=== PATIENT | male | born 1945 | race Caucasian/White ===

== ENCOUNTER 2017-06-30 07:59 | Outpatient (CLI) | payer MEDICARE, BC ==
--- NOTE | 2017-06-30 17:50 | MRI ---
MRI CERVICAL SPINE WITH AND WITHOUT CONTRAST: Date: 06/30/17 HISTORY: 72-year-old male with cervicalgia and cervical radiculopathy. COMPARISON: None. TECHNIQUE: Multisequence MRI of cervical spine performed in axial and sagittal planes, pre and post IV injectio n of 20 mL of MultiHance Gadolinium based contrast agent. FINDINGS: There is no abnormal enhancement in the intramedullary, extramedullary-intradural, extradural, intra osseous, or perivertebral, spaces. No Chiari malformation. Cervical spinal cord is normal in size an d signal. Vertebral body heights are maintained. No high grade disc space narrowing at any level. C1-2: Essentially normal. C2-3: Mild right degenerative facet changes. No central or neural foraminal stenosis. Disc space maintaine d. C3-4: Thickened ligamentum flavum abuts and minimally indents the dorsal aspect of the spinal cord. Broad based disc-osteophytic bar complex indents the ventral aspect of the spinal cord, causing severe jackson tral spinal canal stenosis.. This is larger on the right side of the spinal canal than the left. Thi s is contiguous with large right uncovertebral joint osteophytes, which, together with mild right de generative facet hypertrophy and slight degenerative retrolisthesis of C3 on C4 (with mild disc spac e narrowing) results in severe right neural foraminal stenosis. Moderate to severe left neural christine inal stenosis. C4-5: Normal right facet joint. The left facet joint is indistinct and difficult to visualize clearly on t he sagittal images. There may be bony hypertrophy, and possible ankylosis of the left facet joint. M oderate central spinal canal stenosis entirely on a congenital basis due to developmentally short pe dicles. Small bilateral uncovertebral joint osteophytes on the right and moderate sized uncovertebra l joint osteophytes on the left. No right-sided neural foraminal stenosis. Moderate to severe left n eural foraminal stenosis. C5-6: Thickened ligamentum flavum minimally indents the dorsal aspect of the spinal cord. Broad based disc -osteophytic bar complex indents the ventral surface of the spinal cord. Overall, severe central spi nal canal stenosis. Bilateral uncovertebral joint osteophytes, left larger than right, result in mod erate to severe right neural foraminal stenosis, and severe left neural foraminal stenosis. C6-7: Broad based disc-osteophytic bar complex encroaches upon the anterior aspect of the spinal canal, al most contacting the spinal cord. Superimposed on a developmentally small caliber spinal canal, and m ild ligamentum flavum thickening, this results in moderate central spinal canal stenosis. Normal jessi ateral facet joints. Large left uncovertebral joint osteophytes. Mild to moderate right neural christine inal stenosis, and severe left neural foraminal stenosis. C7-T1: Normal right facet joint. Mild left degenerative facet changes. No central or neural foraminal steno sis. IMPRESSION: 1. Severe central spinal canal stenosis at C3-4 and C5-6. 2. High grade neural foraminal stenosis at multiple levels bilaterally. POS: JI
== END 2017-06-30 08:00 | disposition home or self-care (01) ==
LOC: MRI 07:59
PROVIDERS: ATTEND Internal Medicine
DX: M54.12 Radiculopathy, cervical region (principal); R52 Pain, unspecified; M48.02 Spinal stenosis, cervical region
CPT/HCPCS: 72156

== ENCOUNTER 2017-08-15 07:47 | Outpatient (CLI) | payer MEDICARE, BC ==
--- NOTE | 2017-08-15 10:55 | MRI ---
LUMBAR MRI WITHOUT IV CONTRAST: History: 63-year-old male with lumbar radiculopathy and balance problems and back pain. Technique: Multiplanar, multisequence MRI examination of the lumbar spine is performed. FINDINGS: There is a focal lower abdominal aortic aneurysm measuring approximately 4.4 x 4.9 cm. Several small right renal T2 hyperintensity, T1 hypointense foci, statistically small renal cysts. There is some minimal incidental fluid within the central lower spinal cord. T12-L1 and L1-2 discs are unremarkable. There is generalized disc desiccation changes and ligament a nd facet hypertrophic changes. At L2-3 there is mild disc bulging without central canal or foraminal stenosis. L3-4 disc level is unremarkable. At L4-5 there is diffuse disc bulge with ligament and facet hypertrophic changes with mild bilateral foraminal stenosis. L5-S1 disc is unremarkable. IMPRESSION: Generalized disc desiccation changes with ligament and facet hypertrophic changes without significan t focal canal, lateral recess, or foraminal stenosis. Large lower abdominal aneurysm. Small right re nal T2 hyperintense foci, statistically small cysts. Discussed with WOJCIECH Jane at 11:00 AM POS: JI
--- NOTE | 2017-08-15 11:51 | MRI ---
MRI THORACIC SPINE WITHOUT CONTRAST: HISTORY: Balance problems. Thoracic radiculopathy. Left arm and shoulder pain. FINDINGS: Vertebral body heights and marrow signal are normal. No focal disk herniation, cord compression, or impingement, or significant central or neural foraminal stenosis is seen. The thoracic spinal cord demonstrates normal course, caliber, and signal. Fluid in the central canal is visualized but is w ithin normal limits. There are degenerative changes in the costovertebral joints. Anterior osteoph ytes are present, arising from the vertebral bodies. IMPRESSION: Mild thoracic spondylosis without evidence of disk herniation, cord compression, central or neural f oraminal stenosis. POS: NIKIA
== END 2017-08-15 07:48 | disposition home or self-care (01) ==
LOC: MRI 07:47
PROVIDERS: ATTEND Physician Assistant Surgical
DX: M47.24 Other spondylosis with radiculopathy, thoracic region (principal); R26.89 Other abnormalities of gait and mobility; I71.4 Abdominal aortic aneurysm, without rupture; N28.1 Cyst of kidney, acquired
CPT/HCPCS: 72146; 72148

== ENCOUNTER 2017-08-22 12:11 | Outpatient (CLI) | payer MEDICARE, BC ==
[2017-08-22] MEDS ORDERED: Iopamidol 370 76% 100 ML VIAL ONE (13:56)
--- NOTE | 2017-08-22 16:00 | CT ---
CONTRAST ENHANCED CTA ABDOMEN AND PELVIS: HISTORY: Abdominal aortic aneurysm, I71.4. FINDINGS: Pre- and postcontrast-enhanced CT images abdomen and pelvis obtained. Two-D and 3D reconstructed marilyn ges performed on an independent 3D work station. The lung bases are unremarkable. No evidence of free intraperitoneal air is seen. The liver is unremarkable. The spleen contains small granuloma; otherwise, is unremarkable. The gal lbladder is unremarkable. The pancreas is unremarkable. Adrenal glands and kidneys are unremarkable , except for a small cortical cyst in the mid pole of the right kidney. No evidence of periaortic lymphadenopathy is seen. The SMA, celiac, renal arteries, and MARILYN are patent. There is an infrarenal abdominal aortic aneurysm originating approximately 4.3 cm below the takeoff o f the renal arteries. The aneurysm involves the lowest aspect of the infrarenal abdominal aorta. Ma ximum diameter measures approximately 5.2 x 4.7 cm in the axial plane. Superior inferior length don ures 4.6 cm. The aneurysm with a crescentic posterior area of clot is seen involving the lateral and posterior aspects of the abdominal aorta. The aneurysm does not extend into the right and left comm on iliac arteries. Numerous sigmoid and descending colonic diverticula are present. IMPRESSION: 1. Colonic diverticulosis. 2. Infrarenal abdominal aortic aneurysm without evidence of acute hemorrhage. POS: JI
== END 2017-08-22 12:12 | disposition home or self-care (01) ==
LOC: CT 12:11
PROVIDERS: ATTEND Thoracic Surgery (Cardiothoracic Vascular Surgery)
DX: I71.4 Abdominal aortic aneurysm, without rupture (principal); K57.30 Diverticulosis of large intestine without perforation or abscess without bleeding
CPT/HCPCS: 74174

== ENCOUNTER 2017-10-09 13:52 | Outpatient (CLI) | payer MEDICARE, BC ==
[2017-10-09 15:17] LABS: Hemoglobin 15.2 g/dL (14.0-18.0); Mean Corpuscular HGB CONC 33.8 g/dL (32.0-36.0); Mean Corpuscular Hemoglobin 32.2 pg (27.0-31.0); Mean Corpuscular Volume 95.1 fl (80.0-94.0); Mean Platelet Volume 6.7 fL (7.4-10.4); Platelet Count 181 thou/uL (130-400); RBC Distribution Width 12.7 % (11.5-14.5); Red Blood Cell (RBC) Count 4.73 mill/uL (4.70-6.10)
[2017-10-09 15:36] LABS: INR-International Normal Ratio 1.1; PTT 28.8 SEC (22.9-36.1); Prothrombin Time 14.2 SEC (12.0-14.7)
[2017-10-09 15:46] LABS: ALT (SGPT) 26 U/L (8-55); AST (SGOT) 18 U/L (5-34); Albumin 4.3 g/dL (3.4-4.8); Alkaline Phosphatase 70 U/L (40-150); Anion Gap 15 mmol/L (10-20); BUN (Urea Nitrogen) 17 mg/dL (8.4-25.7); Bilirubin, Total 0.5 mg/dL (0.2-1.2); Calc. Creatinine Clearance 0 mL/min (70-130); Calcium 10.4 mg/dL (7.8-10.44); Carbon Dioxide 25 mmol/L (23-31); Chloride 104 mmol/L (98-107); Estimated GFR-MDRD 50; Globulin 3.5 g/dL (2.4-3.5); Glucose 98 mg/dL (80-115); Potassium 4.9 mmol/L (3.5-5.1); Protein, Total 7.8 g/dL (5.8-8.1); Sodium 139 mmol/L (136-145)
--- NOTE | 2017-11-03 16:31 | EKG ---
Test Reason : Blood Pressure : / mmHG Vent. Rate : 062 BPM Atrial Rate : 062 BPM P-R Int : 150 ms QRS Dur : 088 ms QT Int : 390 ms P-R-T Axes : 032 066 068 degrees QTc Int : 395 ms Normal sinus rhythm Normal ECG When compared with ECG of 27-OCT-2015 12:12, No significant change was found Confirmed by DR. Simba CANTOR ([id number]) on 11/03/2017 4:31:13 PM Referred By: JOHN PAUL Confirmed By:DR. Simba CANTOR
== END 2017-10-09 13:53 | disposition home or self-care (01) ==
LOC: LABBT 13:52
PROVIDERS: ATTEND Internal Medicine Cardiovascular Disease
DX: Z01.818 Encounter for other preprocedural examination (principal); R94.30 Abnormal result of cardiovascular function study, unspecified
CPT/HCPCS: 80053; 85027; 85610; 85730; 93005; 93010

== ENCOUNTER 2017-10-12 05:38 | Day surgery (SDC) | payer MEDICARE, BC ==
[2017-10-09 14:27] VITALS: BMI 31.1
[2017-10-12 07:18] LABS: Cardiac Risk 2.7 (Less than 4.5)
[2017-10-12] MEDS ORDERED: Fentanyl 100 MCG/2 ML VIAL ONE (08:23)
[2017-10-12] MEDS ORDERED: Midazolam HCl 2 mg/2 ml Vial ONE (08:23)
[2017-10-12] MEDS ORDERED: Heparin 10,000 UNITS/1 ML VIAL ONE (08:46)
[2017-10-12] MEDS ORDERED: Atropine Sulfate 1 mg/10 ml Syringe ONE (08:50)
--- NOTE | 2017-10-12 11:44 | OP ---
PREOPERATIVE DIAGNOSIS: Abdominal aortic aneurysm with large inferior mesenteric artery. POSTOPERATIVE DIAGNOSIS: Abdominal aortic aneurysm with large inferior mesenteric artery. PROCEDURE: Embolization of inferior mesenteric artery. CONTRAST: 13 mL. FLUOROSCOPY: 21.8 minutes, but this also included fluoroscopy time for his cardiac catheterization a nd stenting of his right coronary artery. PROCEDURE IN DETAIL: After completion of the right coronary artery stenting, accessed the previously placed right femoral artery sheath. A pigtail catheter was used to do AP and lateral injections of the abdominal aorta. The inferior mesenteric artery was then cannulated with a Yousuf catheter and Gli dewire. After seating the Yousuf catheter, a 21 microcatheter was placed into the inferior mesenteric artery. An 8 x 2 cm detachable coil was then placed and then on top of that, a 6 x 2 detachable coil . Following this, it was felt that there was adequate occlusion of the main trunk of the inferior me senteric artery and is coil set just proximal to first bifurcation point. Following this, catheter w as removed and the sheath is going to be handled by Dr. Qureshi.
== END 2017-10-12 15:08 | disposition home or self-care (01) ==
LOC: CCL 05:38
PROVIDERS: ATTEND Internal Medicine Cardiovascular Disease
DX: I25.10 Atherosclerotic heart disease of native coronary artery without angina pectoris (principal); I71.4 Abdominal aortic aneurysm, without rupture; I25.2 Old myocardial infarction; E11.9 Type 2 diabetes mellitus without complications; Z90.49 Acquired absence of other specified parts of digestive tract; Z79.51 Long term (current) use of inhaled steroids; Z79.82 Long term (current) use of aspirin; Z79.1 Long term (current) use of non-steroidal anti-inflammatories (NSAID); Z79.899 Other long term (current) drug therapy; Z95.1 Presence of aortocoronary bypass graft; Z96.653 Presence of artificial knee joint, bilateral; Z98.890 Other specified postprocedural states
CPT/HCPCS: 37242; 80061; 85347 ×2; 93005; 93459; 93798; C1769 ×5; C1874; C1887; C9600; 92928; 99152; 99153; J0461; J1644; J2250; J3010

== ENCOUNTER 2017-10-20 11:26 | Observation (INO) | payer MEDICARE, BC ==
[2017-10-20 12:01] LABS: #Basophils 0.1 thou/uL (0.0-0.2); #Eosinphils 0.1 thou/uL (0.0-0.7); #Lymphocytes 2.2 thou/uL (1.20-3.40); #Monocytes 0.8 thou/uL (0.11-0.59); %Basophils 0.6 % (0.0-1.0); %Eosinophils 1.4 % (0.0-10.0); %Lymphocytes 21.9 % (21.0-51.0); %Monocytes 7.5 % (0.0-10.0); %Neutrophils 68.7 % (42.0-75.0); Hemoglobin 15.7 g/dL (14.0-18.0); Mean Corpuscular HGB CONC 33.9 g/dL (32.0-36.0); Mean Corpuscular Hemoglobin 31.9 pg (27.0-31.0); Mean Corpuscular Volume 94.2 fl (80.0-94.0); Mean Platelet Volume 6.7 fL (7.4-10.4); Platelet Count 220 thou/uL (130-400); RBC Distribution Width 13.1 % (11.5-14.5); Red Blood Cell (RBC) Count 4.93 mill/uL (4.70-6.10); White Blood Cell (WBC) Count 10.1 thou/uL (4.8-10.8)
--- NOTE | 2017-10-20 12:11 | RAD ---
CHEST 1 VIEW: Date: 10/20/17 HISTORY: Dyspnea. Chest pain. COMPARISON: 01/21/09. FINDINGS: Cardiac silhouette is magnified and upper limits of normal in size. Pulmonary vasculature is unremark able. Lungs are hyperinflated. Mediastinum is midline with postoperative changes apparent. Azygos fis sure at the right apex and scarring at the right suprahilar level are stable. IMPRESSION: COPD. Chronic-type findings. No active cardiopulmonary abnormalities are demonstrated. POS: JI
[2017-10-20 12:24] LABS: ALT (SGPT) 21 U/L (8-55); AST (SGOT) 16 U/L (5-34); Albumin 4.2 g/dL (3.4-4.8); Alkaline Phosphatase 63 U/L (40-150); Anion Gap 14 mmol/L (10-20); BUN (Urea Nitrogen) 17 mg/dL (8.4-25.7); Bilirubin, Total 1.1 mg/dL (0.2-1.2); CK (CPK) 65 U/L (30-200); Calc. Creatinine Clearance 0 mL/min (70-130); Calcium 9.9 mg/dL (7.8-10.44); Carbon Dioxide 21 mmol/L (23-31); Chloride 105 mmol/L (98-107); Estimated GFR-MDRD 53; Globulin 3.7 g/dL (2.4-3.5); Glucose 97 mg/dL (80-115); Protein, Total 7.9 g/dL (5.8-8.1); Sodium 136 mmol/L (136-145)
[2017-10-20 12:28] LABS: CKMB 1.6 ng/mL (0-6.6); Troponin I Less than 0.010 ng/mL (< 0.028)
--- NOTE | 2017-10-20 13:18 | CT ---
CT ANGIOGRAM ABDOMEN AND PELVIS WITH IV CONTRAST AND 3D RECONSTRUCTIONS: 10/20/2017 HISTORY: Abdominal aortic aneurysm. COMPARISON: 08/22/2017 FINDINGS: Again noted is an infrarenal abdominal aortic aneurysm, with the aneurysm extending to the aortic bif urcation. The aneurysm again measures similar in size to the prior study, measuring 5.1 cm x 4.7 cm. Craniocaudal extent is approximately 5.1 cm. Eccentric thrombus is again seen at the posterior asp ect of this aneurysm. There is mild atherosclerotic calcification seen in the abdominal aorta and involving the iliac arter ies; however, the iliac arteries are patent bilaterally. The bilateral common femoral as well as the proximal visualized superficial and profunda femoral arteries are patent. There is narrowing involving the proximal celiac artery, likely related to an arcuate ligament. Prom inent calcifications are seen at the origin of the superior mesenteric artery, but the superior mesen teric artery is patent. There are two right renal arteries with mild to moderate narrowing involving the most proximal right renal artery due to atherosclerotic plaque. There is a single patent left r enal artery identified. The inferior mesenteric artery is patent. There is bibasilar atelectasis. There are stable subcentimeter hypodense, cystic lesions involving the right kidney, with much smalle r hypodense lesions involving the left kidney, which are too small to further characterize but statis tically likely represent renal cysts. The liver and pancreas, as well as the bilateral adrenal glands, demonstrate a normal CT appearance. Calcified granulomata are seen in the spleen. The urinary bladder is partially distended and grossl y normal in appearance. There is colonic diverticulosis again present. Post surgical changes at the cecal apex are probably related to a prior appendectomy. There has been no other interval change compared to the prior exam. There is mild stranding seen in the right inguinal region, of uncertain etiology. There is a small l ow density area adjacent to the most proximal right superficial femoral artery. Findings may be rela pilar to recent Cardiac catheterization. There is no evidence of a pseudoaneurysm in this region. IMPRESSION: 1. Overall stable infrarenal abdominal aortic aneurysm with eccentric thrombus present. 2. Narrowing involving the proximal celiac artery, probably related to an arcuate ligament. 3. Mild to moderate narrowing involving the more superiorly located right renal artery. 4. Findings likely related to recent Cardiac catheterization. Clinical correlation is recommended. There is no evidence of a pseudoaneurysm in this region. POS: NIKIA
[2017-10-20 15:58] VITALS: BMI 31.3
[2017-10-20] MEDS ORDERED: ISOVUE-370 76%-LOCM 1 ML ONE (16:42)
[2017-10-20] MEDS ORDERED: Clopidogrel Bisulfate 75 MG TAB PO SCH (16:45)
[2017-10-20] MEDS ORDERED: Ondansetron ODT 4 MG TAB PO PRN (17:08)
[2017-10-20] MEDS ORDERED: hydrALAZINE 20 MG/ML VIAL SLOW IVP PRN (17:08)
[2017-10-20] MEDS ORDERED: Acetaminophen 500 MG TAB PO PRN (17:08)
[2017-10-20] MEDS ORDERED: cloNIDine 0.1 MG TAB PO PRN (17:08)
[2017-10-20] MEDS ORDERED: Ondansetron HCl/PF 4 MG/2 ML Vial IVP PRN (17:08)
--- NOTE | 2017-10-20 19:53 | CON ---
DATE OF CONSULTATION: 10/20/2017 REASON FOR CONSULTATION: Shortness of breath. PRIMARY MANAGER MARKETING: Guido Qureshi M.D. HISTORY OF PRESENT ILLNESS: Mr. Velázquez is a very pleasant 72-year-old white gentleman, who comes to the hospital for increased shortness of breath where he had a heart catheterization with graft an giography done just a week ago. At that time, he was found to have a significant RCA disease and thi s was stented successfully. He was started on Brilinta at that time. It was noted that ever since s tarting the Brilinta, he has continued to feel increased shortness of breath actually a little bit wo rse than normal. He has also noticed a little bit of congestion in his upper airway and he thinks he may be developing a cold. Because his shortness of breath was getting worse, he decided to come in for evaluation. Currently, he tells me he has felt a little more short of breath on lying flat on hi s back, but he has not noticed that his abdominal girth has changed significantly. His legs are not any more swollen they would normally are. PAST MEDICAL HISTORY: 1. Coronary artery disease status post coronary artery bypass grafting as well as stenting as well. 2. Hyperlipidemia. 3. GERD. 4. Sleep apnea. PAST SURGICAL HISTORY: 1. CABG x2 in 2008. 2. Stent placed to the RCA recently. 3. Coiling of the inferior mesenteric artery at the same time of the heart catheterization and stent ing just last week. 4. Right total knee replacement. 5. Hemicolectomy in 2001 due to large colon polyp. ALLERGIES: Intolerance to STATINS, GEMFIBROZIL, and ZETIA. SOCIAL HISTORY: No alcohol, tobacco, or drugs. REVIEW OF SYSTEMS: Twelve point review of systems was done and is all negative unless stated in the history of present illness. OUTPATIENT MEDICATIONS: Include: 1. Rapaflo. 2. CoQ10. 3. Brilinta 90 mg b.i.d. 4. Protonix 40 mg b.i.d. 5. [place]umont 3. 6. Flonase nasal spray. 7. Zyrtec. 8. Carvedilol 3.125 mg p.o. b.i.d. 9. Azelastine nasal spray. 10. Aspirin 81 a day. PHYSICAL EXAMINATION: VITAL SIGNS: Temperature 97.5, pulse 65, respiration rate 16, satting 96% on 2 liters, blood pressur e 128/93. GENERAL: Awake, alert, oriented x3, in no distress. HEENT: Normocephalic, atraumatic. NECK: Supple. LUNGS: Clear. CARDIOVASCULAR: S1, S2. No S3 or S4. No murmurs or rubs. ABDOMEN: Prominent, but soft, nontender, and nondistended. Positive bowel sounds. EXTREMITIES: No edema. SKIN: Warm and dry. LABORATORY WORK: Reviewed. Sodium 136, potassium 4.0, carbon dioxide of 21, anion gap of 14, BUN of 70, creatinine 1.34 which is close to his baseline before his procedure, last week it was 1.4 actual ly. Troponin is undetectable. BNP was 31, albumin 4.2. Chest x-ray shows findings consistent with COPD, but no acute findings. CT angiography of the abdomen and pelvis to evaluate for abdominal aneurysm showed stable aneurysm wi th laminar thrombus which is unchanged. Both superior and inferior mesenteric arteries are patent ac tually, but the coils are seen on the inferior mesenteric artery. I do not know that I see much flow through them. The vessels do feel most likely from collateral flow from the superior mesenteric ar fransisca. ASSESSMENT AND PLAN: 1. Shortness of breath: Most likely related to Brilinta. This is a known side effect of this medic ation. He has noticed worsening shortness of breath since starting this medication or since placing the stent. I doubt that the stent is an issue as his troponins are completely negative. He is not c omplaining of anginal type symptoms. We will switch his Brilinta to Plavix and hopefully he will fee l better in the morning. I initially thought I will have to diurese him, but with a normal chest x-r ay and normal BNP, physical exam is a little bit hard given his large abdominal girth, but he seems t o be uvolemic. I will hold off on any diuresis for now. 2. Hopefully, he will feel better in the morning and he will be able to be discharged home without i ssues. Thank you for letting us to participate in the care of your patient. We will follow.
[2017-10-20] MEDS: Fluticasone Propionate Nasal Spray 16 gm Bottle NASAL SCH (20:14)
[2017-10-20] MEDS: Fish Oil 1,000 MG CAP PO SCH (20:15)
[2017-10-20] MEDS: Carvedilol 3.125 MG TAB PO SCH (20:15)
[2017-10-20] MEDS: Azelastine 137 MCG/Spray 30 ML NS SCH (20:15)
[2017-10-20] MEDS ORDERED: Loratadine 10 MG TAB PO SCH (21:00)
--- NOTE | 2017-10-20 22:19 | HP ---
DATE OF ADMISSION: 10/20/2017 PRIMARY CARE PROVIDER: Toan García M.D. PRIMARY SECURITY OPERATIONS CENTER ANALYST: Guido Qureshi MD CHIEF COMPLAINT: Shortness of breath and high blood pressure. HISTORY OF PRESENT ILLNESS: This is a 72-year-old male who presents to [facility] complaining of increased shortness of breath with associated high blood pressure, taki ng his blood pressure at home. The patient noted his blood pressure was elevated per his report with no specific change in his activity level. The patient became concerned with associated shortness of breath and some palpitations. The patient's history is significant for recent right coronary arteri es drug-eluting stent placement on 10/12/2017. The patient with a known history of coronary artery d isease status post coronary artery bypass grafting with patent grafts per review of the cardiac chuckie terization report. The patient underwent successful PCI Synergy drug-eluting stent to the right tarun nary artery and placed on Brilinta and aspirin. The patient states he has been compliant with his me dication regimen and denied any specific fever, chills, blood in his stool, hematemesis or coughing. The patient did notice fluctuating blood pressure, but exact numbers are not given. The patient sta abimael he was out in the community shopping at a local department store, but denied any strenuous activi ties. The patient denies any specific increased swelling to his lower extremities or swelling at the groin site where previous catheterization was performed. The patient denied any prominent chest milana n, jaw or left arm discomfort. The patient did not take any home remedies and states he typically re sted to relieve his symptoms. In the emergency room, the patient underwent general evaluation includ ing chest imaging showing no acute infiltrate. The patient underwent CT angiogram of the abdomen and pelvis after recent cardiac catheterization as well as an inferior mesenteric artery coil procedure done at the time of the cardiac catheterization on 10/12/2017. Findings showed no specific acute iss ue and screening troponins were negative on metabolic survey. EKG was performed showing initial ques tion of ST depression in V3 through V6 and leads II, III, and F. The patient was transferred to the observation unit for further evaluation. PAST MEDICAL HISTORY: 1. Coronary artery disease status post right coronary artery drug-eluting stent placement, 8. 2. Status post embolization with coil to the inferior mesenteric artery, 10/12/2017. 3. Hypertension. 4. Degenerative joint disease. 5. Coronary artery disease. 6. Hyperlipidemia. 7. Abdominal aortic aneurysm. PAST SURGICAL HISTORY: 1. Status post coronary artery bypass grafting. 2. Status post cardiac catheterization with drug-eluting stent in the right coronary artery. 3. Status post bilateral total knee arthroplasty. 4. Status post colon resection. 5. Status post umbilical hernia repair. CURRENT MEDICATIONS: 1. Aspirin enteric coated 81 mg 1 tab p.o. daily. 2. Carvedilol 3.125 mg p.o. b.i.d. 3. Zyrtec 10 mg 1 tab p.o. at bedtime. 4. Azelastine 137 mcg 1 spray in each naris b.i.d. 5. Repatha SureClick 140 mg subcutaneously every 2 weeks. 6. Flonase nasal spray 1 spray in each naris b.i.d. 7. Shoshone 3 fatty acids 1200 mg p.o. b.i.d. 8. Protonix 40 mg 1 tab p.o. b.i.d. 9. Brilinta 90 mg p.o. b.i.d. 10. Coenzyme Q10 of 200 mg p.o. daily. ALLERGIES: No known drug allergies. FAMILY HISTORY: Positive for hypertension. SOCIAL HISTORY: The patient is , residing in [place], [place]. No current alcohol, tobacco or il licit drug use. REVIEW OF SYSTEMS: The following complete review of systems was negative, unless otherwise mentioned in the HPI or below: Constitutional: Weight loss or gain, ability to conduct usual activities. Skin: Rash, itching. Ey es: Double vision, pain. ENT/Mouth: Nose bleeding, neck stiffness, pain, tenderness. Cardiovascul ar: Palpitations, dyspnea on exertion, orthopnea. Respiratory: Shortness of breath, wheezing, coug h, hemoptysis, fever or night sweats. Gastrointestinal: Poor appetite, abdominal pain, heartburn, n ausea, vomiting, constipation, or diarrhea. Genitourinary: Urgency, frequency, dysuria, nocturia. Musculoskeletal: Pain, swelling. Neurologic/Psychiatric: Anxiety, depression. Allergy/Immunologic : Skin rash, bleeding tendency. PHYSICAL EXAMINATION: VITAL SIGNS: On admission, blood pressure 148/97, pulse 90, respiratory rate 22, temperature 98.3 de grees Fahrenheit, O2 saturation 96% on room air. GENERAL APPEARANCE: This is a 72-year-old female, alert and oriented x3, pleasant, convers ant, in no acute distress. HEENT: Pupils are equal, round, and reactive to light and accommodation. Extraocular muscles are in tact. No scleral icterus, no conjunctival injection. Nares patent. OP is clear. Teeth in good rep air. NECK: Supple, no cervical adenopathy, no thyromegaly, no carotid bruits, no JVD appreciated. Cervic al spine with full active and passive range of motion. No meningeal signs appreciated. CHEST: Lungs are clear to auscultation bilaterally. CARDIOVASCULAR: S1, S2 with distant heart sounds. ABDOMEN: Rounded, soft without tenderness to palpation. Bowel sounds are positive in all four quadr ants. There is no hepatosplenomegaly, no abdominal bruits, no rebound or guarding appreciated. EXTREMITIES: Warm and dry with fair turgor. No clubbing, cyanosis or asymmetric edema appreciated. Ecchymosis in the right groin region noted consistent with prior femoral access for cardiac catheter ization. No large hematoma palpated. Pulses are palpable distally at the dorsalis pedis, posterior tibial, and popliteal arteries bilaterally. Capillary refill less than 2 seconds. NEUROLOGIC: Cranial nerves II-XII are grossly intact. No focal or lateralizing signs appreciated. PERTINENT LABORATORY AND X-RAY FINDINGS: Sodium 136, potassium 4.0, chloride 105, CO2 of 21, BUN 17, creatinine 1.34 with estimated GFR 53, glucose 97, calcium 9.9. LFTs within normal limits. Troponi n I negative x1. Albumin 4.2. CBC showed a white blood cell count of 10.1, hemoglobin 16, hematocri t 46, MCV 94, platelet count 220 with normal differential. Portable chest x-ray dated 10/20/2017 showed no acute cardiopulmonary process. CT angiogram of the abdomen and pelvis dated 10/20/2017 showed, 1. Stable infrarenal abdominal aortic aneurysm with eccentric thrombus. Narrowing involving the pro ximal celiac artery secondarily to arcuate ligament. 2. Mild to moderate narrowing of superiorly located right renal artery. EKG dated 10/20/2017 by my interpretation shows sinus mechanism with heart rates in the 80s-90s. Nor mal R-wave progression noted in the precordial leads. Normal axis. Nonspecific ST-T wave changes in V3 through V6 and leads II, III, and F. Repeat EKG dated 10/20/2017 at 13:10 p.m. showed sinus mech anism, heart rates in the 60s. Normal R-wave progression noted in the precordial leads. Normal axis . Resolution of mild ST-T wave changes noted. ASSESSMENT AND PLAN: 1. Dyspnea with question of anginal equivalent. The patient will be observed on the telemetry unit. We will continue symptomatic and supportive management. Consult Cardiology Service for evaluation. No current evidence to suggest acute coronary syndrome. May consider low dose nitrates. 2. Hypertension. Questionable lability. We will continue serial blood pressure monitoring. Resume home antihypertensive regimen and monitor clinical response. 3. Coronary artery disease status post right coronary artery drug-eluting stent placement, 8. We will continue home regimen of aspirin 81 mg p.o. daily. Add Plavix 75 mg p.o. daily. Hold Br ilinta. Continue carvedilol 3.125 mg p.o. b.i.d. 4. Hyperlipidemia. Continue omega 3 fatty acids 1200 mg p.o. b.i.d., Repatha SureClick every 2 week s. 5. Question of chronic kidney disease stage II-III. Avoid nephrotoxic agents and contrast media. R epeat creatinine in the a.m. 6. Status post inferior mesenteric artery embolization. Stable currently. Continue supportive nighat gement. Continue aspirin and Plavix. 7. Prophylaxis. Sequential compression devices while in bed. Protonix 40 mg p.o. b.i.d. 8. Code status is FULL. Surrogate medical decision maker is patient's spouse.
[2017-10-21 05:35] LABS: Band 7 % (5-11); Eosinophils 1 % (0-10); Hemoglobin 14.4 g/dL (14.0-18.0); Lymphocytes 29 % (21-51); MDiff Complete? YES; Mean Corpuscular HGB CONC 32.4 g/dL (32.0-36.0); Mean Corpuscular Hemoglobin 30.6 pg (27.0-31.0); Mean Corpuscular Volume 94.4 fl (80.0-94.0); Mean Platelet Volume 7.1 fL (7.4-10.4); Monocytes 5 % (0-10); Neutrophil 58 % (42-75); Platelet Count 196 thou/uL (130-400); RBC Distribution Width 13.2 % (11.5-14.5); Red Blood Cell (RBC) Count 4.69 mill/uL (4.70-6.10)
[2017-10-21 05:48] LABS: Anion Gap 12 mmol/L (10-20); BUN (Urea Nitrogen) 18 mg/dL (8.4-25.7); Calc. Creatinine Clearance 81 mL/min (70-130); Calcium 9.6 mg/dL (7.8-10.44); Carbon Dioxide 23 mmol/L (23-31); Chloride 104 mmol/L (98-107); Estimated GFR-MDRD 57; Glucose 92 mg/dL (80-115); Potassium 3.8 mmol/L (3.5-5.1); Sodium 135 mmol/L (136-145)
[2017-10-21] MEDS ORDERED: Clopidogrel Bisulfate 75 MG TAB PO SCH (09:00)
[2017-10-21] MEDS ORDERED: Aspirin 81 mg Enteric Coated Tablet PO SCH (09:00)
[2017-10-21] MEDS ORDERED: Ubidecarenone 50 MG CAP PO SCH (09:00)
[2017-10-21] MEDS: Azelastine 137 MCG/Spray 30 ML NS SCH (09:02)
[2017-10-21] MEDS: Fluticasone Propionate Nasal Spray 16 gm Bottle NASAL SCH (09:03)
[2017-10-21] MEDS: Carvedilol 3.125 MG TAB PO SCH (09:04)
[2017-10-21] MEDS: Fish Oil 1,000 MG CAP PO SCH (09:05)
[2017-10-21 11:25] VITALS: BP 140/84; TEMP 97.6
--- NOTE | 2017-10-21 12:43 | PDOC.CTH ---
Cardiology Progress Note - Subjective He is doing better today. SOB is already starting to improve. - Objective Vital Signs Temp Pulse Resp BP Pulse Ox 10/21/17 10:50 97.6 F 64 20 140/84 93 L 10/21/17 07:48 97.9 F 79 20 130/82 94 L 10/21/17 07:20 98.4 F 71 16 10/21/17 04:26 98.4 F 71 16 120/57 L 94 L Weight 232 lb 8 oz 10/20/17 10/21/17 10/22/17 06:59 06:59 06:59 Intake Total 450 300 Output Total 1900 450 Balance -1450 -150 - Physical Examination General/Neuro: alert & oriented x3, NAD Neck: no JVD present Lungs: CTA, unlabored respirations Heart: RRR Abdomen: NT/ND Extremities: + edema B (trace) - Telemetry Telemetry Rhythm: NSR - Labs Result Diagrams: 10/21/17 04:29 10/21/17 04:29 Troponin/CKMB CK-MB (CK-2) 1.6 ng/mL (0-6.6) 10/20/17 11:45 Troponin I Less than 0.010 ng/mL (< 0.028) 10/20/17 11:45 - Assessment/Plan 1. SOB. 2. Recent stent to RCA 3. Recent coiling of MARILYN 4. CAD, stable PLAN: - Continue Plavix, SOB may have been related to Brilinta. - Continue other meds. - May discharge home at any time from cardiac perspective. - Follow up in 2 weeks. - Will sign off. Please call with any questions.
== END 2017-10-21 13:04 | disposition home or self-care (01) ==
LOC: ERS 11:26 → 2SW 14:00
PROVIDERS: ADMIT Family Medicine; ATTEND Family Medicine
DX: R06.02 Shortness of breath (principal); I10 Essential (primary) hypertension; I25.10 Atherosclerotic heart disease of native coronary artery without angina pectoris; Z95.1 Presence of aortocoronary bypass graft; M19.90 Unspecified osteoarthritis, unspecified site; I71.4 Abdominal aortic aneurysm, without rupture; E78.5 Hyperlipidemia, unspecified; Z79.82 Long term (current) use of aspirin; Z79.02 Long term (current) use of antithrombotics/antiplatelets; Z79.899 Other long term (current) drug therapy; Z90.49 Acquired absence of other specified parts of digestive tract; Z98.890 Other specified postprocedural states; Z86.73 Personal history of transient ischemic attack (TIA), and cerebral infarction without residual deficits
CPT/HCPCS: 71045; 74174; 80048; 80053; 82550; 82553; 83880; 84484; 85007; 85025; 85027; 93005; 99285; G0378; 36415

== ENCOUNTER 2017-11-15 13:00 | Inpatient (IN) | payer MEDICARE, BC ==
--- NOTE | 2017-11-14 16:39 | HP ---
HISTORY OF PRESENT ILLNESS: This is a 72-year-old gentleman being admitted for repair of an abdomina l aortic aneurysm that was measured by about [address] scan. It was found incidentally durin g evaluation for neck and shoulder pain. His neck pain has been improved with an injection. He has also undergone recent coronary artery stenting taking a short course of Brilinta, now on aspirin and Plavix. He also has a history of chronic kidney disease with creatinine elevation felt to be due to meloxicam administration. He is active walking about 3 miles a day. PAST MEDICAL HISTORY: Includes coronary artery disease, gout, arthritis, AAA. PAST SURGICAL HISTORY: Includes CABG to the LAD diagonal in 2008 and then recent coronary stenting b elieved to right coronary artery. He has had a prior colon resection, knee replacement, and hernia r epair. SOCIAL HISTORY: He has not smoked for many years. He is and accompanied by his . ALLERGIES: He has no known allergies. MEDICATIONS: Include aspirin one a day, Plavix 75 a day, Protonix 40 a day, Repatha once a month, an d an inhaler. PHYSICAL EXAMINATION: GENERAL: Alert, cooperative gentleman. VITAL SIGNS: Blood pressure 140/80, height 6 foot, weight 235. NECK: No carotid bruits. CARDIAC: Regular rate and rhythm, no murmurs. LUNGS: Clear to auscultation. ABDOMEN: Normal bowel sounds, nondistended. Unable to palpate his aneurysm. EXTREMITIES: He has no peripheral edema with 2+ dorsalis pedis pulses bilaterally and normal neurolo gic exam. The patient has had coil embolization of his inferior mesenteric artery and now being admitted for ab dominal aortic aneurysm repair.
[2017-11-16] MEDS ORDERED: CEFAZOLIN/Water 2 GM/20 ML SYRINGE ONE (09:01)
[2017-11-16] MEDS ORDERED: Midazolam HCl 2 mg/2 ml Vial ONE ×2 (09:07→09:43)
[2017-11-16] MEDS ORDERED: Heparin 10,000 UNITS/1 ML VIAL ONE ×2 (09:32→09:43)
[2017-11-16] MEDS ORDERED: Fentanyl 100 MCG/2 ML VIAL ONE (09:43)
[2017-11-16] MEDS ORDERED: Protamine Sulfate 50 MG/5 ML VIAL ONE ×2 (09:43→15:24)
[2017-11-16] MEDS ORDERED: Promethazine HCl 25 MG/ML VIAL SLOW IVP PRN (11:21)
[2017-11-16] MEDS ORDERED: Meperidine HCl/PF 25 MG/ML VIAL SLOW IVP PRN (11:21)
[2017-11-16] MEDS ORDERED: Morphine Sulfate 2 MG/ML SYRINGE SLOW IVP PRN (11:21)
--- NOTE | 2017-11-16 13:24 | OP ---
PREOPERATIVE DIAGNOSIS: Abdominal aortic aneurysm. PROCEDURE: Endovascular aneurysm repair with [employer] Endurant system using a main body, right 23 x 16 x 160 and a left limb 16 x 13 x 120. SURGEON: Jay Jay Mike M.D. TIE PULLER: Julio. CONTRAST: 54. FLUOROSCOPY: 11 minutes 22 seconds. PROCEDURE IN DETAIL: After adequate anesthesia had been obtained, the patient was prepped and draped . Ultrasound guided femoral artery was performed bilaterally and ProGlides deployed x2 in each groin . Following this, over a Bentson guidewire on the left, a 12-Ind[place]ian sheath was advanced after exchan ging the Bentson wire for a Lunderquist wire. On the right, a 5-Ind[place]ian sheath was placed and the Con tra catheter advanced into the aorta where angiograms were obtained. Main body was then deployed on the right side bareback after placing the Contra catheter on the left. Repeat angiography with magni fication left deployment just below the level of the left renal artery which was the lowest renal art leonie. The gate was then cannulated from the left groin with a Contra catheter and Bentson guidewire. The left limb was then deployed following which balloons were used to balloon the graft. Following this, completion angiography showed no type 1 or type 2 endo leaks. There was late visualization of the sac through two sets of lumbars and perhaps an aberrant lower pole right renal artery. Followin g this, the stiff wires were exchanged for the Bentson wires and the ProGlide deployed x2 on the righ t groin and a third ProGlide was deployed on the left groin for hemostasis. Following completion of this, there was good hemostasis and the heparin which had been given in a 7500 mL bolus initially was partially reversed with 25 mg of protamine. The patient is to be taken to the recovery room.
[2017-11-16] MEDS ORDERED: Fentanyl 100 MCG/2 ML VIAL SLOW IVP PRN ×2 (14:55)
[2017-11-16] MEDS ORDERED: Ondansetron HCl/PF 4 MG/2 ML Vial IVP PRN (14:55)
[2017-11-16] MEDS ORDERED: Acetaminophen 325 MG TAB PO PRN (14:55)
[2017-11-16] MEDS ORDERED: DOPamine 400 MG/D5W 250 ML 250 ML IVPB PRN (14:55)
[2017-11-16] MEDS ORDERED: Sodium Chloride 0.9% 1,000 ML IV SCH (14:55)
[2017-11-16] MEDS ORDERED: Promethazine HCl 25 MG/ML VIAL IM PRN (14:55)
[2017-11-16] MEDS ORDERED: HYDROcodone/Acetaminophen 5/325 mg Tablet PO PRN ×2 (14:55)
[2017-11-16] MEDS ORDERED: hydrALAZINE 20 MG/ML VIAL SLOW IVP PRN (14:55)
[2017-11-16] MEDS ORDERED: Phenylephrine 10 MG/NS 250 ML 250 ML IVPB PRN (14:55)
[2017-11-16 14:57] VITALS: BMI 30.3
[2017-11-16] MEDS ORDERED: ePHEDrine/0.9% NaCl/PF SYRINGE 50 mg/10 ml ONE (15:24)
[2017-11-16] MEDS ORDERED: Propofol 200 MG/20 ML VIAL ONE (15:24)
[2017-11-16] MEDS ORDERED: Glycopyrrolate 0.2 MG/ML 5 ML SYRINGE ONE (15:24)
[2017-11-16] MEDS ORDERED: PHENYLEPHRINE-NS 100 MCG/ML 10 ML SYRINGE ONE (15:24)
[2017-11-16] MEDS ORDERED: Ondansetron HCl/PF 4 MG/2 ML Vial ONE (15:24)
[2017-11-16] MEDS ORDERED: Dexamethasone 20 MG/5 ML VIAL ONE (15:24)
[2017-11-16] MEDS ORDERED: Heparin 10,000 UNITS/ 10 ML VIAL ONE (15:24)
[2017-11-16] MEDS ORDERED: Lidocaine 1% PF 5 ML VIAL ONE (15:24)
[2017-11-16] MEDS ORDERED: niCARdipine HCl 50 MG in Sodium Chloride 0.9% 250 ML 250 ML IVPB PRN (16:30)
[2017-11-16] MEDS ORDERED: Amlodipine 5 MG TAB PO SCH (19:00)
[2017-11-16] MEDS: CEFAZOLIN/Water 2 GM/20 ML SYRINGE SLOW IVP SCH (19:53)
[2017-11-16 19:56] VITALS: BP 129/54
[2017-11-16] MEDS ORDERED: Lisinopril 5 MG TAB PO SCH (21:00)
[2017-11-16] MEDS ORDERED: Metoprolol Tartrate 25 MG TAB PO SCH (21:00)
[2017-11-17] MEDS: CEFAZOLIN/Water 2 GM/20 ML SYRINGE SLOW IVP SCH (04:09)
[2017-11-17 04:17] VITALS: TEMP 98.4
[2017-11-17 05:53] LABS: #Basophils 0.2 thou/uL (0.0-0.2); #Lymphocytes 1.3 thou/uL (1.20-3.40); #Monocytes 1.1 thou/uL (0.11-0.59); #Neutrophils 9.9 thou/uL (1.40-6.50); %Basophils 1.3 % (0.0-1.0); %Eosinophils 0.1 % (0.0-10.0); %Lymphocytes 10.6 % (21.0-51.0); %Monocytes 8.6 % (0.0-10.0); %Neutrophils 79.3 % (42.0-75.0); Hemoglobin 13.9 g/dL (14.0-18.0); Mean Corpuscular HGB CONC 33.4 g/dL (32.0-36.0); Mean Corpuscular Hemoglobin 31.7 pg (27.0-31.0); Mean Corpuscular Volume 94.9 fl (80.0-94.0); Mean Platelet Volume 6.5 fL (7.4-10.4); Platelet Count 152 thou/uL (130-400); RBC Distribution Width 12.9 % (11.5-14.5); Red Blood Cell (RBC) Count 4.39 mill/uL (4.70-6.10); White Blood Cell (WBC) Count 12.5 thou/uL (4.8-10.8)
[2017-11-17 06:28] LABS: Anion Gap 11 mmol/L (10-20); BUN (Urea Nitrogen) 13 mg/dL (8.4-25.7); Calc. Creatinine Clearance 78 mL/min (70-130); Calcium 9.6 mg/dL (7.8-10.44); Carbon Dioxide 25 mmol/L (23-31); Chloride 107 mmol/L (98-107); Estimated GFR-MDRD 56; Glucose 118 mg/dL (80-115); Sodium 139 mmol/L (136-145)
[2017-11-17] MEDS ORDERED: Clopidogrel Bisulfate 75 MG TAB PO SCH (09:00)
--- NOTE | 2017-11-17 13:39 | DIS ---
HOSPITAL COURSE: The patient admitted for elective repair of a 5.5 cm abdominal aortic aneurysm. He underwent a repair using the Endurant II 2-piece system with a main body right and limb left. Intra operatively, he did well and his discharge creatinine was 1.27 consistent with preoperative levels an d hemoglobin of 13.9. He had some mild intermittent tachycardia at about 100 postoperatively and his blood pressure was mildly elevated for a number of hours postoperatively. Consideration was given s tarting a low dose of beta jennie; however, the patient had a bad experience with Coreg and was quit e against any medication for his blood pressure. At this time, he will be discharged on his home med ications. Both groin sites appear soft and without bleeding. Discharge and follow up instructions w ere given.
== END 2017-11-17 07:57 | disposition home or self-care (01) | DRG 269 ==
LOC: SURG A 11-16 08:18 → CCU 11-16 14:21
PROVIDERS: ADMIT Thoracic Surgery (Cardiothoracic Vascular Surgery); ATTEND Thoracic Surgery (Cardiothoracic Vascular Surgery)
PROC: 04V03DZ Restriction of Abdominal Aorta with Intraluminal Device, Percutaneous Approach (ICD-10-PCS; principal; 2017-11-16)
DX: I71.4 Abdominal aortic aneurysm, without rupture (principal); I25.10 Atherosclerotic heart disease of native coronary artery without angina pectoris; R00.0 Tachycardia, unspecified; Z79.02 Long term (current) use of antithrombotics/antiplatelets; Z95.5 Presence of coronary angioplasty implant and graft; Z79.82 Long term (current) use of aspirin; Z87.891 Personal history of nicotine dependence; Z95.1 Presence of aortocoronary bypass graft; M10.9 Gout, unspecified; M19.90 Unspecified osteoarthritis, unspecified site
CPT/HCPCS: 36415; 76001; 80048; 85025; 85027; 86850; 86900; 86901; 93798; C1726; C1760; C1762; C1769; C1894; J1100; J1642; J1644; J2001; J2250; J2405; J2704; J2720; J3010; J3370; J7050

== ENCOUNTER 2018-03-05 07:18 | Outpatient (CLI) | payer MEDICARE, BC ==
--- NOTE | 2018-03-05 09:17 | CT ---
CT ANGIO OF ABDOMEN AND PELVIS PERFORMED WITH INTRAVENOUS CONTRAST ENHANCEMENT WITH 3D RECONSTRUCTION S: HISTORY: Abdominal aortic aneurysm repair. COMPARISON: 10/20/17 study. FINDINGS: Lung bases show chronic-appearing change. The liver, spleen, pancreas, and gallbladder regions all appear unremarkable. Right and left adrenal glands are normal in size and appearance. Right and left kidneys are normal i n size. A small hypodensity involving the mid pole of the right kidney is compatible with a small cy st and also a subcentimeter cyst of the lower pole. There is an aortoiliac stent present. I do not see any evidence of endoleak. The size of the [place] aneurysm is approximately 5.1 cm in AP dimension and 4.8 cm in transverse, relatively stable overall measurement. There is filling of a lower pole right renal artery which arises in the region of the iliac component of the stent, but this is not felt to represent a leak. Sigmoid diverticulosis is no pilar. Some mild bladder wall thickening is probably on the basis of some mild bladder outlet obstruct ion. There is atherosclerotic plaque at the origin of the superior mesenteric artery. There is mild to mo derate narrowing of the origin of the celiac artery with some post stenotic dilatation. There also i s some very mild narrowing of the main right renal artery at its origin. IMPRESSION: 1. Aortoiliac stent without evidence of an endoleak. The [place] size of the aneurysm is relatively stable. 2. Mild narrowing of the origin of the superior mesenteric artery and moderate narrowing of the orig in of the celiac artery. 3. Two right renal arteries. The main right renal artery shows mild narrowing. POS: JI
[2018-03-05] MEDS ORDERED: Iopamidol 370 76% 100 ML VIAL ONE (14:49)
== END 2018-03-05 07:19 | disposition home or self-care (01) ==
LOC: CT 07:18
PROVIDERS: ATTEND Thoracic Surgery (Cardiothoracic Vascular Surgery)
DX: I71.4 Abdominal aortic aneurysm, without rupture (principal); I77.1 Stricture of artery
CPT/HCPCS: 74174; 82565

== ENCOUNTER 2018-04-06 08:24 | Outpatient (CLI) | payer MEDICARE, BC | END 2018-04-06 08:25 | disposition home or self-care (01) | LOC: CTENTCT 08:24 | PROVIDERS: ATTEND Specialist | DX: J32.9 Chronic sinusitis, unspecified (principal) | CPT/HCPCS: 70486 ==

== ENCOUNTER 2019-03-07 07:47 | Outpatient (CLI) | payer MEDICARE, BC ==
--- NOTE | 2019-03-07 11:02 | CT ---
CT ANGIOGRAM ABDOMEN AND PELVIS WITH AND WITHOUT CONTRAST WITH 3D RENDERING: COMPARISON: 03/05/2018. HISTORY: Abdominal aortic aneurysm repair followup. The patient has no complaints. FINDINGS: Stable-appearing chronic changes in both lungs with some old granulomatous disease. Liver, gallbladd er, pancreas, spleen, and adrenal glands show no acute process. No renal calculus or acute obstru ction. Small right renal cyst. Aortoiliac stent is in place. No evidence for an endoleak. Aortic aneurysm sac size is overall stable. Stable-appearing narrowing of the celiac and superior mesenteri c artery origins. Mild main right renal artery stable narrowing. No significant new process. IMPRESSION: Stable aortoiliac stent without evidence for an endoleak. Stable size of the [place] aneurysm sac. S table narrowing of the origins of the superior mesenteric artery, celiac artery, and mild right renal artery narrowing. No evidence for other significant acute process. POS: OFF
== END 2019-03-07 07:48 | disposition home or self-care (01) ==
LOC: BICCT 07:47
PROVIDERS: ATTEND Thoracic Surgery (Cardiothoracic Vascular Surgery)
DX: I71.4 Abdominal aortic aneurysm, without rupture (principal); I77.4 Celiac artery compression syndrome; I70.1 Atherosclerosis of renal artery
CPT/HCPCS: 74174; 82565

== ENCOUNTER 2019-10-18 08:54 | Outpatient (CLI) | payer MEDICARE, BC ==
--- NOTE | 2019-10-18 10:32 | RAD ---
5 VIEWS CERVICAL SPINE: Date: 10/18/2019 COMPARISON: None. HISTORY: Left-sided neck pain radiating into the shoulder with difficulty moving the head to the left. FINDINGS: Open-mouth odontoid view demonstrates a normal appearing dens and C1-2 articulation. There is multile yancy mid cervical spine facet and uncovertebral osteophyte formation, left greater than right. Neutral lateral imaging demonstrates no significant anterolisthesis or retrolisthesis. There is prominent di sc space narrowing and anterior osteophyte formation at C3-4, C5-6, and C6-7. On the flexion and the extension imaging, there is no anterolisthesis or retrolisthesis. No prevertebral soft tissue swellin g. IMPRESSION: Significant multilevel degenerative change within the cervical spine as detailed above. POS: TPC
--- NOTE | 2019-10-18 11:53 | MRI ---
CERVICAL SPINE MRI WITHOUT CONTRAST: Date: 10/18/2019 COMPARISON: None. HISTORY: Left-sided neck pain radiating into the shoulder with difficulty moving the head to the left. TECHNIQUE: Multiplanar, multisequence MR imaging of cervical spine without contrast. FINDINGS: Sagittal STIR imaging demonstrates no focal area of osseous marrow edema. Minimal retrolisthesis of C 3 on C4 measuring in the 2.0 mm range is noted. C2-3: Mild facet hypertrophy bilaterally. No significant central canal or neural foraminal stenosis. C3-4: There is disc space narrowing and disc desiccation with disc bulge. There is a right paracentr al disc herniation. There is a moderate degree of central canal stenosis laterally on the right. Bila teral facet and uncovertebral osteophyte formation is noted as well, with severe right and moderate l eft neural foraminal stenosis. C4-5: Bilateral facet and uncovertebral osteophyte formation, left greater than right. No significan t central canal stenosis. Mild/moderate bilateral neural foraminal stenosis, left greater than right. C5-6: There is disc space narrowing with disc desiccation and mild disc bulge effacing the ventral t hecal sac and leading to a mild/moderate degree of central canal stenosis. Bilateral facet and uncove rtebral osteophyte formation noted, left greater than right. Mild right and moderate left neural fora deloris stenosis. C6-7: There is disc space narrowing and disc desiccation with disc bulge causing mild central canal stenosis. Bilateral facet and uncovertebral osteophyte formation, left greater than right. Mild right and moderate/severe left neural foraminal stenosis. C7-T1: Mild bilateral facet hypertrophy with no significant central canal or neural foraminal stenos is. There is no focal area of abnormal signal intensity identified within the cervical cord. IMPRESSION: Multilevel cervical spine degenerative change as detailed above, most prominent at C3-4 on the right. POS: TPC
== END 2019-10-18 08:55 | disposition home or self-care (01) ==
LOC: TBSIIMAG 08:54
PROVIDERS: ATTEND Physician Assistant
DX: M48.02 Spinal stenosis, cervical region (principal); M54.2 Cervicalgia; M54.12 Radiculopathy, cervical region; M25.519 Pain in unspecified shoulder; M47.812 Spondylosis without myelopathy or radiculopathy, cervical region
CPT/HCPCS: 72050; 72141

== ENCOUNTER 2020-02-07 07:27 | Outpatient (CLI) | payer MEDICARE, BC, OTHER ==
[2020-02-07 14:45] LABS: Hemoglobin 14.6 g/dL (14.0-18.0); Mean Corpuscular HGB CONC 32.7 g/dL (32.0-36.0); Mean Corpuscular Hemoglobin 31.3 pg (27.0-31.0); Mean Corpuscular Volume 95.7 fL (78.0-98.0); Mean Platelet Volume 7.3 fL (7.4-10.4); Platelet Count 153 thou/uL (130-400); Red Blood Cell (RBC) Count 4.67 mill/uL (4.70-6.10); White Blood Cell (WBC) Count 7.2 thou/uL (4.8-10.8)
[2020-02-07 14:50] LABS: INR-International Normal Ratio 1.1; Prothrombin Time 13.7 sec (12.0-14.7)
[2020-02-07 15:04] LABS: Anion Gap 12 mmol/L (10-20); BUN (Urea Nitrogen) 14 mg/dL (8.4-25.7); Calc. Creatinine Clearance 0 mL/min (70-130); Calcium 9.3 mg/dL (7.8-10.44); Carbon Dioxide 27 mmol/L (23-31); Chloride 98 mmol/L (98-107); Estimated GFR-MDRD 53; Glucose 109 mg/dL (83-110); Potassium 4.7 mmol/L (3.5-5.1); Sodium 132 mmol/L (136-145)
[2020-02-08 17:09] LABS: SARS-CoV-2 MS2 Positive; SARS-CoV-2 N Gene Negative; SARS-CoV-2 S Gene Negative; SARS-CoV-2 orf1ab Negative
== END 2020-02-07 07:28 | disposition home or self-care (01) ==
LOC: LABBT 07:27
PROVIDERS: ATTEND Surgery
DX: Z01.818 Encounter for other preprocedural examination (principal); Z11.59 Encounter for screening for other viral diseases; M54.12 Radiculopathy, cervical region; M48.02 Spinal stenosis, cervical region
CPT/HCPCS: 80048; 85027; 85610; 85730; 93005; U0003; 87635; 93010

== ENCOUNTER 2020-02-11 05:51 | Day surgery (SDC) | payer MEDICARE, BC ==
[2020-02-10 10:31] VITALS: BMI 31.8
[2020-02-11] MEDS ORDERED: Thrombin 5000 UNITS/5 ML VIAL ONE (06:37)
[2020-02-11] MEDS ORDERED: Fentanyl 100 MCG/2 ML VIAL ONE ×2 (07:25→09:24)
[2020-02-11] MEDS ORDERED: Midazolam HCl 2 mg/2 ml Vial ONE (07:31)
[2020-02-11] MEDS ORDERED: Promethazine HCl 25 MG/ML VIAL SLOW IVP PRN (09:26)
[2020-02-11] MEDS ORDERED: HYDROmorphone 2 MG/ML VIAL SLOW IVP PRN (09:26)
[2020-02-11] MEDS ORDERED: Morphine Sulfate 2 MG/ML SYRINGE SLOW IVP PRN (09:26)
[2020-02-11] MEDS ORDERED: Promethazine HCl 25 MG/ML VIAL IM PRN (09:26)
[2020-02-11] MEDS ORDERED: PACU-Morphine 4MG/ML VIAL SLOW IVP PRN (09:26)
[2020-02-11] MEDS ORDERED: Ondansetron HCl/PF 4 MG/2 ML Vial IVP PRN (09:26)
[2020-02-11] MEDS ORDERED: traMADol HCl 50 MG TAB PO PRN (09:54)
[2020-02-11] MEDS ORDERED: Bisacodyl 10 MG SUPP PR PRN (09:54)
[2020-02-11] MEDS ORDERED: Ondansetron PF 4 MG/2 ML Vial IVP PRN (09:54)
[2020-02-11] MEDS ORDERED: Morphine 2 MG/ML SYRINGE SLOW IVP PRN (09:54)
[2020-02-11] MEDS ORDERED: Fleet Enema 133 ML BOT PR PRN (09:54)
[2020-02-11] MEDS ORDERED: Mag-Al 1200 mg/1200 mg/30 ML UDCUP PO PRN (09:54)
[2020-02-11] MEDS ORDERED: Acetaminophen/Codeine 30-300mg Tablet PO PRN (09:54)
[2020-02-11] MEDS ORDERED: Milk Of Magnesia 30 ML UDCUP PO PRN (09:54)
[2020-02-11] MEDS ORDERED: HYDROcodone/Acetaminophen 7.5/325 mg Tablet PO PRN (09:54)
[2020-02-11] MEDS ORDERED: Acetaminophen 325 MG TAB PO PRN (09:54)
--- NOTE | 2020-02-11 10:58 | OP ---
DATE OF PROCEDURE: 02/11/2020 LOCATION: OR 12. STAFF MIDWIFE/APPRENTICESHIP DIRECTOR: Joy Randolph PA-C PREPROCEDURE DIAGNOSIS: Cervical stenosis with neck and left arm pain consistent with cervical radiculopathy. POSTPROCEDURE DIAGNOSIS: Cervical stenosis with neck and left arm pain consistent with cervical radiculopathy. PROCEDURES PERFORMED: 1. Anterior C5-C6, C6-C7 diskectomies for decompression of spinal cord nerve roots. 2. Preparation of endplates with placement of interbody spacers, packed with local bone autograft obtained with same incision and allograft of C5-C6, C6-C7 for arthrodesis. 3. Anterior cervical plate and screw fixation, C5, C6, and C7. 4. Use of operating microscope for microdissection. DESCRIPTION OF PROCEDURE: After informed consent was obtained from the patient, the patient was brought to the OR. Proper patient, pause, and identification were carried out. He was placed under excellent general endotracheal anesthesia and right anterior oblique lani was drawn out for approach to the C5 to C7 segments. This region was sterilely cleansed, prepared, and draped, proper patient, pause, and identification. The wound was then opened with combination of sharp, monopolar, and blunt dissection. We proceeded lateral to the tracheoesophageal bundle, and medial to the right carotid sheath, we identified the prevertebral layer of deep cervical fashion in C5 to C7 segments. The longus colli muscles were swept laterally. Localization film confirmed area of interest. We then performed distraction at C5-C6. Microscope was brought in for microdissection. C5-C6 diskectomy was performed. We had excellent decompression of common dural tube and nerve roots. The endplates were prepared and an interbody spacer with appropriate dimension was placed, packed with graft for initiation of arthrodesis. This was repeated at C6-C7, distraction and diskectomy was performed there and decompression of the C7 nerve roots and preparation of the endplates. Interbody spacer packed with graft was placed at C6-C7 for initiation of arthrodesis. We then performed removal of the microscope and a C5 to C7 anterior cervical plate and screw fixation. Copious irrigation occurred throughout as did maximizing hemostasis. The wound was then closed in anatomic layers over drain. The patient emerged from anesthesia. Job ID: [id number]
[2020-02-11] MEDS ORDERED: Dexamethasone 20 MG/5 ML VIAL ONE (11:34)
[2020-02-11] MEDS ORDERED: EPHEDRINE 25 MG/5 ML SYRINGE ONE (11:34)
[2020-02-11] MEDS ORDERED: Glycopyrrolate 0.2 MG/ML 5 ML SYRINGE ONE (11:34)
[2020-02-11] MEDS ORDERED: Lidocaine 1% PF 5 ML VIAL ONE ×2 (11:34)
[2020-02-11] MEDS ORDERED: PROPOFOL 200 MG/20 ML VIAL ONE (11:34)
[2020-02-11] MEDS ORDERED: Rocuronium Bromide 10 MG/ML (10ML VIAL) ONE (11:34)
[2020-02-11] MEDS ORDERED: Ondansetron PF 4 MG/2 ML Vial ONE (11:34)
[2020-02-11] MEDS: Sodium Chloride 0.9% 1,000 ML IV SCH (13:42)
[2020-02-11] MEDS: CEFAZOLIN 2 GM in Premix Bag 1 BAG IVPB SCH ×2 (13:42→21:40)
[2020-02-11] MEDS: tiZANidine HCl 4 MG TAB PO PRN (15:20)
[2020-02-11] MEDS ORDERED: ALPRAZolam 0.5 MG TAB PO SCH (21:00)
[2020-02-11] MEDS ORDERED: Latanoprost 0.005% Ophth Soln 2.5 ml Bottle EA EYE SCH (21:00)
[2020-02-11] MEDS: Azelastine 137 MCG/Spray 30 ML NS SCH (22:43)
[2020-02-11] MEDS: Fluticasone Propionate Nasal Spray 16 gm Bottle NASAL SCH (22:44)
[2020-02-12] MEDS: tiZANidine HCl 4 MG TAB PO PRN ×2 (00:57→09:53)
[2020-02-12] MEDS: Sodium Chloride 0.9% 1,000 ML IV SCH (04:31)
[2020-02-12] MEDS: CEFAZOLIN 2 GM in Premix Bag 1 BAG IVPB SCH (05:16)
[2020-02-12 07:45] VITALS: TEMP 97.9
[2020-02-12] MEDS ORDERED: FLUoxetine HCl 20 MG CAP PO SCH (09:00)
[2020-02-12] MEDS ORDERED: Loratadine 10 MG TAB PO PRN (09:00)
[2020-02-12] MEDS ORDERED: Ubidecarenone 50 MG CAP PO SCH (09:00)
[2020-02-12] MEDS: Azelastine 137 MCG/Spray 30 ML NS SCH (09:48)
--- NOTE | 2020-02-12 09:53 | PRG ---
DATE OF SERVICE: 02/12/2020 Mr. Velázquez is postoperative day 1 from a multilevel ACDF. He is doing well this morning with mild dysphonia and improvement in his arm pain and good strength. Unfortunately, he evidently was given coffee in the PACU that was very hot, and he spilled this causing first-degree hwang right underneath his chin. This did not affect the wound. This should be treated with aloe, and I spoke with he and his daughter in that regard. He is tolerating orals, voiding on his own and ambulating. His drain output is 15 mL. We will plan for removal and discharge. Job ID: [id number]
[2020-02-12] MEDS: Fluticasone Propionate Nasal Spray 16 gm Bottle NASAL SCH (10:15)
[2020-02-12 11:23] VITALS: BP 92/54
== END 2020-02-12 13:00 | disposition home or self-care (01) ==
LOC: SDC 05:51 → SURG B 11:06 → SDC 02-12 13:00
PROVIDERS: ATTEND Surgery
PROC: 0RG20A0 Fusion of 2 or more Cervical Vertebral Joints with Interbody Fusion Device, Anterior Approach, Anterior Column, Open Approach (ICD-10-PCS; principal; 2020-02-11)
PROC: 0RG2070 Fusion of 2 or more Cervical Vertebral Joints with Autologous Tissue Substitute, Anterior Approach, Anterior Column, Open Approach (ICD-10-PCS; 2020-02-11)
PROC: 0RT30ZZ Resection of Cervical Vertebral Disc, Open Approach (ICD-10-PCS; 2020-02-11)
DX: M48.02 Spinal stenosis, cervical region (principal); M54.12 Radiculopathy, cervical region; Z79.82 Long term (current) use of aspirin; Z79.899 Other long term (current) drug therapy
CPT/HCPCS: 20930; 20936; 22554; 22585; 22853 ×2; 76000; 97139 ×2; C1776; J0690; J1100; J2001; J2250; J2270; J2405; J2704; J3010

== ENCOUNTER 2020-03-11 11:48 | Outpatient (CLI) | payer MEDICARE, BC ==
--- NOTE | 2020-03-11 14:03 | RAD ---
CERVICAL SPINE 3 VIEWS: INDICATION: Cervical radiculopathy. FINDINGS: Postop changes. Anterior plate and screws in place transfixing C5, C6, and C7. Interbody implants a t these levels with mild compression of the C6 vertebrae. Posterior alignment is preserved. Other d isk spaces are maintained with anterior osteophytes prominent at C3-4 and C4-5. Facet hypertrophy. IMPRESSION: Postoperative and degenerative changes of the cervical spine. POS: AH
== END 2020-03-11 11:49 | disposition home or self-care (01) ==
LOC: BICRAD 11:48
PROVIDERS: ATTEND Physician Assistant
DX: M50.10 Cervical disc disorder with radiculopathy, unspecified cervical region (principal); M47.22 Other spondylosis with radiculopathy, cervical region; Z98.890 Other specified postprocedural states
CPT/HCPCS: 72040

== ENCOUNTER 2022-01-25 09:57 | Outpatient (CLI) | payer MEDICARE, BC ==
[~2022-01-25 09:57] MED LIST: Iopamidol 370 76% 100 ML VIAL ONE
== END 2022-01-25 09:58 | disposition home or self-care (01) ==
LOC: CT 09:57
PROVIDERS: ATTEND Thoracic Surgery (Cardiothoracic Vascular Surgery)
DX: I71.4 Abdominal aortic aneurysm, without rupture (principal); K80.20 Calculus of gallbladder without cholecystitis without obstruction; K57.30 Diverticulosis of large intestine without perforation or abscess without bleeding; N28.1 Cyst of kidney, acquired; K55.1 Chronic vascular disorders of intestine; N28.89 Other specified disorders of kidney and ureter; Z98.890 Other specified postprocedural states
CPT/HCPCS: 74174; 82565; Q9967

== ENCOUNTER 2022-07-01 13:14 | Outpatient (CLI) | payer MEDICARE, BC | END 2022-07-01 13:15 | disposition home or self-care (01) | LOC: BICMRI 13:14 | PROVIDERS: ATTEND Internal Medicine | DX: M47.26 Other spondylosis with radiculopathy, lumbar region (principal); M48.061 Spinal stenosis, lumbar region without neurogenic claudication; I71.4 Abdominal aortic aneurysm, without rupture; E88.2 Lipomatosis, not elsewhere classified | CPT/HCPCS: 72148 ==

== ENCOUNTER 2022-07-06 14:00 | Outpatient (CLI) | payer MEDICARE, BC | END 2022-07-06 14:01 | disposition home or self-care (01) | LOC: BICRAD 14:00 | PROVIDERS: ATTEND Internal Medicine | DX: R05.3 Chronic cough (principal) | CPT/HCPCS: 71046 ==